=== PATIENT | female | born 1960 | race Caucasian/White ===

== ENCOUNTER → 2020-07-31 | Outpatient (CLI) | payer MEDICARE, OTHER ==
[~2020-07-31] MED LIST: ATOR40TA PO; Buspirone HCl15 MG PO; EUTHYROX25 MCG; Flonase 0.05% N16 GM; GABA300 PO; GABA400 PO; INDOMETHACIN ER75 MG PO; LEVOTHYROXINE25 MC2 PO; ONDA4 PO; OXYB5 PO; SERT100 PO; SHINGRIX V50 MCG/0.5 IM; TRAZ50 PO; ZOCOR20 MG; Zocor10 MG PO
[2020-08-01 09:31] LABS: Stool Occult Bld Immuno 1 Negative (NEGATIVE)
== END | disposition home or self-care (01) ==
LOC: LAB 07:00 → LAB SHORT 07:00
PROVIDERS: Nurse Practitioner Family
DX: K92.1 Melena (principal)
CPT/HCPCS: 82274

== ENCOUNTER 2020-10-16 08:25 | Day surgery (SDC) | payer MEDICARE, OTHER ==
[~2020-10-16] VITALS: Ht 160 cm; Wt 73.8 kg
[~2020-10-16 08:25] MED LIST changes: -ZOCOR20 MG
[2020-10-16] MEDS ORDERED: ZOCOR20 MG (08:46)
--- NOTE | 2020-10-16 08:56 | NUR ---
10/16/20 0856 ALECIA KELLEY ONE ATTEMPT BY JOJO IN RH VAVLE SECOND ATTEMPT BY JOJO IN RH VALVE THIRD SUCCESSFUL BY RN IN RAC PT TOW
--- NOTE | 2020-10-16 10:54 | NUR ---
10/16/20 1054 Dora Reyez PT. VERBALIZES FEELING A PINCH IN HER LEFT LOWER QUADRANT AREA. PT. INSTRUCTED PT.IT MAY BE SOME AIR IN THERE THAT SHE MAY NEED TO EITHER BURP UP OR PASS OUT. PT. PER ORD.ERF DID PASS GAS DURING PROCEDURE. PT. ALSO C/O RIGHT ARM SORENESS WITH MODERATE AMT. OF SWELLING. PT. INSTRUCTED SHE COULD PUT A WARM PACK OR ICE PACK ON IF ANY DISCOMFORT, IV INFILTRATED DURING PROCEDURE.
== END 2020-10-16 10:45 | disposition home or self-care (01) ==
LOC: ORSCSDS 08:25
PROVIDERS: Surgery
PROC: 0DB48ZX Excision of Esophagogastric Junction, Via Natural or Artificial Opening Endoscopic, Diagnostic (ICD-10-PCS; principal; 2020-10-16 09:45)
PROC: 0DB68ZX Excision of Stomach, Via Natural or Artificial Opening Endoscopic, Diagnostic (ICD-10-PCS; principal; 2020-10-16 09:45)
DX: K44.9 Diaphragmatic hernia without obstruction or gangrene (principal); R68.81 Early satiety; K20.90 Esophagitis, unspecified without bleeding; K29.70 Gastritis, unspecified, without bleeding; E78.5 Hyperlipidemia, unspecified; E03.9 Hypothyroidism, unspecified; F43.10 Post-traumatic stress disorder, unspecified; Z87.891 Personal history of nicotine dependence; Z79.899 Other long term (current) drug therapy
CPT/HCPCS: 88305; 88342; J2704; J7120

== ENCOUNTER 2020-12-15 12:53 | Day surgery (SDC) | payer MEDICARE, OTHER ==
[~2020-12-15] VITALS: Ht 160 cm; Wt 71.9 kg
[~2020-12-15 12:53] MED LIST changes: +MULTIPLE VITAM1 EACH PO; +ZOCOR20 MG
== END 2020-12-15 14:35 | disposition home or self-care (01) ==
LOC: ORSCSDS 12:53
PROVIDERS: Internal Medicine Gastroenterology
PROC: 0DBL8ZX Excision of Transverse Colon, Via Natural or Artificial Opening Endoscopic, Diagnostic (ICD-10-PCS; principal; 2020-12-15 14:15)
DX: K92.1 Melena (principal); D50.9 Iron deficiency anemia, unspecified; D12.3 Benign neoplasm of transverse colon; K64.2 Third degree hemorrhoids; K57.30 Diverticulosis of large intestine without perforation or abscess without bleeding; Z87.891 Personal history of nicotine dependence; Z79.899 Other long term (current) drug therapy
CPT/HCPCS: 88305; J2704; J7120

== ENCOUNTER 2021-08-14 13:23 | Emergency (ER) | payer MEDICARE, OTHER ==
[~2021-08-14] VITALS: Ht 160 cm; Wt 60.3 kg
[2021-08-14] MEDS ORDERED: HYDR1TAB94 PO (16:01)
== END 2021-08-14 16:12 | disposition home or self-care (01) ==
LOC: ER 13:23
DX: M25.561 Pain in right knee (principal); E78.5 Hyperlipidemia, unspecified; Z88.5 Allergy status to narcotic agent; Z79.899 Other long term (current) drug therapy
CPT/HCPCS: 73562-RT; 96372; 99283-25; A9270; J1885

== ENCOUNTER 2021-09-23 12:09 | Emergency (ER) | payer MEDICARE, OTHER ==
[~2021-09-23] VITALS: Ht 160 cm; Wt 59.9 kg
[~2021-09-23 12:09] MED LIST changes: +HYDR1TAB94 PO
[2021-09-23 12:54] LABS: BASOPHILS ABSOLUTE AUTO 0.03 K/mm3 (0.00-0.23); BASOPHILS PERCENT AUTO 0 % (0-2); EOSINOPHILS ABSOLUTE AUTO 0.07 K/mm3 (0.00-0.68); EOSINOPHILS PERCENT AUTO 1 % (0-6); Hematocrit 41.8 % (33.0-51.0); Hemoglobin 13.8 g/dL (11.5-16.0); IMMATURE GRAN ABSOLUTE AUTO 0.06 K/mm3 (0.00-0.10); IMMATURE GRAN PERCENT AUTO 0 % (0-1); LYMPHOCYTES ABSOLUTE AUTO 1.49 K/mm3 (0.84-5.20); LYMPHOCYTES PERCENT AUTO 10 % (21-46); MONOCYTES ABSOLUTE AUTO 0.67 K/mm3 (0.16-1.47); MONOCYTES PERCENT AUTO 5 % (4-13); Mean Corpuscular HGB 29.9 pg (26.0-34.0); Mean Corpuscular Volume 91 fL (80-100); Mean Platelet Volume 9.7 fL (9.1-12.4); NEUTROPHILS ABSOLUTE AUTO 12.65 K/mm3 (1.96-9.15); NEUTROPHILS PERCENT AUTO 84 % (41-73); Platelet Count 170 K/mm3 (150-400); RDW Coefficient Variation 13.3 % (11.7-14.2); RDW Standard Deviation 44.1 fL (35.1-46.3); Red Blood Cell Count 4.61 M/mm3 (3.80-5.20); White Blood Cell Count 14.97 K/mm3 (4.00-11.30)
[2021-09-23 13:17] LABS: Albumin, Blood 3.5 g/dL (3.4-5.0); Albumin/Globulin Ratio 1.1 (0.8-1.8); Bilirubin, Total 0.6 mg/dL (0.1-1.0); Bun/Creatinine Ratio 20.4 (12.0-20.0); Calcium, Blood 8.5 mg/dL (8.5-10.1); Creatinine, Blood 0.64 mg/dL (0.40-1.00); Globulin, Blood 3.3 g/dL (2.2-4.0); Potassium, Blood 4.3 mmol/L (3.5-5.5); Total Protein, Blood 6.8 g/dL (6.4-8.2)
[2021-09-23 14:21] LABS: Source, Urine Clean Catch
[2021-09-23 14:29] LABS: Appearance, Urine Clear (Clear); Bilirubin, Urine Neg (Neg); Blood, Urine Neg (Neg); Color, Urine Yellow (P-Yellow); Glucose Qualitative, Urine Neg (Neg); Ketones, Urine 3+ (Neg); Leukocyte Esterase, Urine Neg (Neg); Nitrite, Urine Neg (Neg); Protein, Urine Neg (Neg); Urobilinogen, Urine NORM (Normal)
[2021-09-23] MEDS ORDERED: AMOCLA875 PO (15:24)
== END 2021-09-23 16:40 | disposition home or self-care (01) ==
LOC: ER 12:09
PROVIDERS: Student in an Organized Health Care Education/Training Program
DX: K57.92 Diverticulitis of intestine, part unspecified, without perforation or abscess without bleeding (principal); D72.829 Elevated white blood cell count, unspecified
CPT/HCPCS: 36415; 74176; 80053; 81003; 85025; 96374; 96375; 99284-25; A9270; J1170; J2405; J7030

== ENCOUNTER 2022-01-09 12:01 | Emergency (ER) | payer MEDICARE, OTHER ==
[~2022-01-09] VITALS: Ht 160 cm; Wt 59.9 kg
[~2022-01-09 12:01] MED LIST changes: +AMOCLA875 PO
== END 2022-01-09 15:59 | disposition home or self-care (01) ==
LOC: ER 12:01
DX: K40.90 Unilateral inguinal hernia, without obstruction or gangrene, not specified as recurrent (principal); E78.5 Hyperlipidemia, unspecified; F17.200 Nicotine dependence, unspecified, uncomplicated; Z88.5 Allergy status to narcotic agent; Z79.899 Other long term (current) drug therapy
CPT/HCPCS: 76857

== ENCOUNTER 2022-12-20 09:20 | Emergency (ER) | payer MEDICARE, OTHER ==
[~2022-12-20] VITALS: Ht 160 cm; Wt 59.0 kg
[2022-12-20 09:35] VITALS: BP 142/94
[2022-12-20] MEDS ORDERED: CYCL10 PO (11:19)
[2022-12-20] MEDS ORDERED: IBU600 M1 PO (11:19)
[2022-12-20] MEDS ORDERED: Norco 5-325 Ta1 EACH PO (11:19)
== END 2022-12-20 11:29 | disposition home or self-care (01) ==
LOC: ER 09:20
DX: M54.50 Low back pain, unspecified (principal); Z88.5 Allergy status to narcotic agent; Z79.899 Other long term (current) drug therapy; E78.5 Hyperlipidemia, unspecified; F17.200 Nicotine dependence, unspecified, uncomplicated
CPT/HCPCS: 96372; 99283-25; A9270; J1885

== ENCOUNTER 2023-06-03 05:46 | Day surgery (SDC) | payer OTHER ==
[~2023-06-03] VITALS: Ht 157.5 cm; Wt 62.0 kg
[2023-06-03] VITALS (12 sets, daily range): BP systolic 115–147; BP diastolic 57–92
[~2023-06-03 05:46] MED LIST changes: +ACET325 PO; +CYCL10 PO; +IBU600 M1 PO; +MULVITA PO; +Norco 5-325 Ta1 EACH PO
[2023-06-03] MEDS ORDERED: Lactated Ringer's 1,000 ML IV SCH (06:40)
[2023-06-03] MEDS ORDERED: CeFAZolin Sodium 2,000 MG in NS 50 ML IV SCH (06:40)
[2023-06-03] MEDS ORDERED: propofoL 20 ML IV ONE (06:59)
[2023-06-03] MEDS ORDERED: Midazolam HCl 1MG / ML 2ML Vial ONE (06:59)
[2023-06-03] MEDS ORDERED: FentaNYL Citrate 50 MCG/ML 2 ML Injection ONE ×3 (06:59→09:50)
[2023-06-03] MEDS ORDERED: Lidocaine HCl 2% 20 ML MDV ONE (07:00)
[2023-06-03] MEDS ORDERED: Bupivacaine 0.5% HCl 5 MG/ML 30MLVIAL ONE (07:18)
[2023-06-03] MEDS ORDERED: Labetalol HCL 5 MG/ML 4ML Injection (Single Dose) IV PRN (07:25)
[2023-06-03] MEDS ORDERED: FentaNYL Citrate 50 MCG/ML 2 ML Injection IV PRN ×3 (07:25→07:30)
[2023-06-03] MEDS ORDERED: Metoclopramide HCl 5MG / ML 2ML Vial IV PRN (07:30)
[2023-06-03] MEDS ORDERED: Droperidol 5 mg/2 ml Vial IV PRN (07:30)
[2023-06-03] MEDS ORDERED: Ondansetron HCl 2 MG / ML 2ML Vial ONE (07:58)
[2023-06-03] MEDS ORDERED: Ketorolac Tromethamine 30mg Vial ONE (07:58)
[2023-06-03] MEDS ORDERED: Dexamethasone Sod Phos 10 MG/ML 1ML VIAL ONE (07:58)
[2023-06-03] MEDS ORDERED: Glycopyrrolate 0.2 MG/ML 5ML VIAL ONE (09:18)
[2023-06-03] MEDS ORDERED: Neostigmine Methylsulfate 5MG/5ML SYR ONE (09:18)
--- NOTE | 2023-06-03 09:43 | NUR ---
PT STATES SHE HAS TAKEN [facility]CO WITHOUT ANY PROBLEM
[2023-06-03] MEDS ORDERED: HYDROcodone 5-APAP 325 TAB PO PRN (09:45)
--- NOTE | 2023-06-03 10:15 | NUR ---
FOUR INCISION SITE WITH SURGICAL GLUE INTACT TO ABDOMEN. NO VISIBLE DRAINAGE, SWELLING, ERYTHEMA OR BRUISING NOTED. TOLERATING SIPS OF WATER. DENIES NAUSEA. RATES SURGICAL PAIN TO LEFT GROIN 2/10, AND DESCRIBES ACHING.
--- NOTE | 2023-06-03 10:30 | NUR ---
Discharge instructions reviewed with patient. Patient verbalizes understanding. Copy given to patient to take home.
--- NOTE | 2023-06-03 10:59 | NUR ---
1045- UP TO DRESS. GAIT STEADY. VOIDED. PATIENT VERBALIZES DESIRE TO DISCHARGE HOME. VSS.
== END 2023-06-03 10:53 | disposition home or self-care (01) ==
LOC: ORSCMMR 05:46 → ORD 07:30 → ORSCMMR 07:30
PROVIDERS: Surgery
PROC: 0YU84JZ Supplement Left Femoral Region with Synthetic Substitute, Percutaneous Endoscopic Approach (ICD-10-PCS; principal; 2023-06-03 07:30)
PROC: 8E0W4CZ Robotic Assisted Procedure of Trunk Region, Percutaneous Endoscopic Approach (ICD-10-PCS; principal; 2023-06-03 07:30)
PROC: 0YU64JZ Supplement Left Inguinal Region with Synthetic Substitute, Percutaneous Endoscopic Approach (ICD-10-PCS; principal; 2023-06-03 07:30)
DX: K40.90 Unilateral inguinal hernia, without obstruction or gangrene, not specified as recurrent (principal); K41.90 Unilateral femoral hernia, without obstruction or gangrene, not specified as recurrent; K66.0 Peritoneal adhesions (postprocedural) (postinfection); J44.9 Chronic obstructive pulmonary disease, unspecified; B19.20 Unspecified viral hepatitis C without hepatic coma; E78.00 Pure hypercholesterolemia, unspecified; Z79.899 Other long term (current) drug therapy
CPT/HCPCS: A9270; C1781; J0690; J1100; J1885; J2250; J2405; J2704; J2710; J3010; J7120

== ENCOUNTER 2024-02-20 09:14 | Emergency (ER) | payer OTHER ==
[~2024-02-20] VITALS: Ht 157.5 cm; Wt 60.3 kg
[2024-02-20 10:10] VITALS: BP 149/117
[2024-02-20] MEDS ORDERED: Cyclobenzaprine HCl 10 MG Tab PO ONE (11:10)
[2024-02-20] MEDS ORDERED: Ketorolac Tromethamine 30mg Vial IM ONE (11:10)
== END 2024-02-20 11:27 | disposition left against medical advice (07) ==
LOC: ER 09:14
DX: M54.50 Low back pain, unspecified (principal); F17.200 Nicotine dependence, unspecified, uncomplicated; Z53.29 Procedure and treatment not carried out because of patient's decision for other reasons
CPT/HCPCS: 99283